=== PATIENT | female | born 1955 | race African-American/Black ===

== ENCOUNTER 2017-01-02 10:47 | Day surgery (SDC) | payer OTHER ==
[~2017-01-02] VITALS: Ht 160 cm; Wt 79.4 kg
[2017-01-02 11:15] VITALS: BP 142/77
[2017-01-02 17:21] VITALS: BP 137/66
== END 2017-01-02 17:20 | disposition home or self-care (01) ==
LOC: DS 10:47
PROVIDERS: Neuromusculoskeletal Medicine, Sports Medicine
PROC: 0LN70ZZ Release Right Hand Tendon, Open Approach (ICD-10-PCS; principal; 2017-01-02 10:30)
DX: M65.321 Trigger finger, right index finger (principal); I10 Essential (primary) hypertension; J45.909 Unspecified asthma, uncomplicated; M79.7 Fibromyalgia
CPT/HCPCS: J0690; J2001; J2250; J3010; J3490; J7120